=== PATIENT | female | born 1995 | race Caucasian/White ===

== ENCOUNTER 2017-11-26 13:35 | Inpatient (IN) | payer MEDICAID ==
[2017-11-26] MEDS: LACTATED RINGER'S 1,000 ML IV ×2 (14:30→16:20)
[2017-11-26] MEDS ORDERED: TERBUTALINE 1 ML (15:11)
[2017-11-26] MEDS: TERBUTALINE 1 MG/ML INJ SC (15:13)
[2017-11-26] MEDS ORDERED: SOD CHLORIDE 0.9% 1,000 ML IV (17:30)
[2017-11-26] MEDS ORDERED: MAGNESIUM SULFATE 20 GM/500 ML 500 ML IV (17:40)
[2017-11-26] MEDS ORDERED: MAGNESIUM SULFATE 4 GM/100 ML 100 ML (17:40)
[2017-11-26] MEDS: BETAMET NA PHOS/AC(6 MG/ML) 5ML INJ IM (17:44)
[2017-11-26] MEDS: MAGNESIUM SULFATE 4 GM/100 ML 100 ML IV (17:47)
[2017-11-26] MEDS: MAGNESIUM SULFATE 20 GM/500 ML 500 ML IV (18:16)
[2017-11-26] MEDS: CEFTRIAXONE 1 GM/50 ML (PMX) 50 ML IVPB (18:23)
[2017-11-26] MEDS: ACETAMINOPHEN 325 MG TAB PO (21:43)
[2017-11-27 01:51] LABS: MAGNESIUM 5.4 mg/dl (1.7-2.5)
[2017-11-27] MEDS: MAGNESIUM SULFATE 20 GM/500 ML 500 ML IV ×2 (04:30→14:48)
[2017-11-27] MEDS ORDERED: AL HYDROX/MG HYDROX/SIMETH 30 ML CUP PO (09:30)
[2017-11-27] MEDS: ONDANSETRON 4 MG INJ IV (11:05)
[2017-11-27 11:23] LABS: ADD UMIC NO; UR ASCORBIC ACID NEGATIVE (NEGATIVE); UR BILIRUBIN (Dip) NEGATIVE (NEGATIVE); UR BLOOD (Dip) NEGATIVE (NEGATIVE); UR CLARITY CLEAR (CLEAR); UR COLOR STRAW (YELLOW); UR GLUCOSE (Dip) NEGATIVE (NEGATIVE); UR KETONES (Dip) 2+ mg/dL (NEGATIVE); UR LEUKOCYTE ESTERASE (Dip) NEGATIVE Leu/ul (NEGATIVE); UR NITRITE (Dip) NEGATIVE (NEGATIVE); UR SPECIFIC GRAVITY (Dip) 1.009 (1.003-1.030); UR TOTAL PROTEIN (Dip) NEGATIVE (NEGATIVE); UR UROBILINOGEN (Dip) NEGATIVE (NEGATIVE)
[2017-11-27 13:58] LABS: MAGNESIUM 6.5 mg/dl (1.7-2.5)
[2017-11-27 14:50] LABS: ADD MAN DIFF? NO
[2017-11-27 14:51] LABS: BASOPHILS % 0.2 % (0.0-2.0); HEMATOCRIT 32.7 % (37.0-47.0); HEMOGLOBIN 11.4 g/dl (12.0-16.0); LYMPHOCYTES # 0.9 10^3/ul (0.8-2.9); LYMPHOCYTES % 7.6 % (15.0-51.0); MEAN CORPUSCULAR HEMOGLOBIN 31.7 pg (29.0-33.0); MEAN CORPUSCULAR HGB CONC 34.9 g/dl (32.0-37.0); MEAN CORPUSCULAR VOLUME 90.8 fl (82.0-101.0); MEAN PLATELET VOLUME 10.3 fl (7.4-10.4); MONOCYTE # 0.6 10^3/ul (0.3-0.9); NEUTROPHIL # 10.8 10^3/ul (1.6-7.5); NEUTROPHILS % 86.2 % (39.0-77.0); PLATELET COUNT 201 10^3/UL (140-415); RED CELL DISTRIBUTION WIDTH 12.9 % (11.5-14.5)
[2017-11-27 14:51] LABS: WHITE BLOOD COUNT 12.5 10^3/ul (4.8-10.8)
[2017-11-27 15:25] LABS: ALANINE AMINOTRANSFERASE 30 IU/L (13-69); ALBUMIN 3.5 g/dl (3.3-4.9); ALBUMIN/GLOBULIN RATIO 1.09; ALKALINE PHOSPHATASE 79 IU/L (42-121); ANION GAP 14 (8-16); ASPARTATE AMINO TRANSFERASE 23 IU/L (15-46); BILIRUBIN,INDIRECT 0.4 mg/dl (0-1.1); BILIRUBIN,TOTAL 0.4 mg/dl (0.2-1.3); BLOOD UREA NITROGEN 3 mg/dl (7-20); CALCIUM 6.7 mg/dl (8.4-10.2); CARBON DIOXIDE 20 mmol/L (21-31); CHLORIDE 101 mmol/L (97-110); CREATININE 0.53 mg/dl (0.44-1.00); GLUCOSE 116 mg/dl (70-220); POTASSIUM 3.5 mmol/L (3.5-5.1); SODIUM 131 mmol/L (135-144); TOTAL PROTEIN 6.7 g/dl (6.1-8.1)
[2017-11-27] MEDS: BETAMET NA PHOS/AC(6 MG/ML) 5ML INJ IM (17:46)
[2017-11-27] MEDS: LACTATED RINGER'S 1,000 ML IV (18:11)
[2017-11-27 18:27] LABS: MAGNESIUM 6.5 mg/dl (1.7-2.5)
[2017-11-28 01:21] LABS: MAGNESIUM 6.4 mg/dl (1.7-2.5)
[2017-11-28] MEDS: MAGNESIUM SULFATE 20 GM/500 ML 500 ML IV (01:39)
[2017-11-28] MEDS: LACTATED RINGER'S 1,000 ML IV (06:16)
[2017-11-28 07:08] LABS: MAGNESIUM 6.3 mg/dl (1.7-2.5)
[2017-11-28 12:16] LABS: MAGNESIUM 5.3 mg/dl (1.7-2.5)
== END 2017-11-28 15:30 | disposition home or self-care (01) | DRG 778 ==
LOC: OBT 13:35 → L-D 13:35 → OBT 17:50 → L-D 17:50
PROVIDERS: Obstetrics & Gynecology
DX: O60.03 Preterm labor without delivery, third trimester (principal); O23.43 Unspecified infection of urinary tract in pregnancy, third trimester; Z3A.33 33 weeks gestation of pregnancy
CPT/HCPCS: 76817; 76818; 80053; 81003; 83735; 85025; 85460; 86850; 86900; 86901; 87086

== ENCOUNTER 2017-12-15 21:15 | Inpatient (IN) | payer MEDICAID ==
[2017-12-15] MEDS: LACTATED RINGER'S 1,000 ML IV (21:55)
[2017-12-16] MEDS: TERBUTALINE 1 MG/ML INJ SC ×2 (00:10→08:51)
[2017-12-16 01:48] LABS: ADD UMIC NO; UR ASCORBIC ACID NEGATIVE (NEGATIVE); UR BACTERIA MODERATE /HPF (NONE SEEN); UR BILIRUBIN (Dip) NEGATIVE (NEGATIVE); UR BLOOD (Dip) NEGATIVE (NEGATIVE); UR CLARITY SLIGHTLY CLOUDY (CLEAR); UR COLOR YELLOW (YELLOW); UR GLUCOSE (Dip) NEGATIVE (NEGATIVE); UR KETONES (Dip) TRACE mg/dL (NEGATIVE); UR LEUKOCYTE ESTERASE (Dip) NEGATIVE Leu/ul (NEGATIVE); UR NITRITE (Dip) NEGATIVE (NEGATIVE); UR RBC 1 /HPF (0-5); UR SPECIFIC GRAVITY (Dip) 1.004 (1.003-1.030); UR SQUAMOUS EPITHELIAL CELL FEW /HPF (FEW); UR TOTAL PROTEIN (Dip) NEGATIVE (NEGATIVE); UR UROBILINOGEN (Dip) NEGATIVE (NEGATIVE); UR WBC 4 /HPF (0-5)
[2017-12-16] MEDS: LACTATED RINGER'S 1,000 ML IV ×2 (03:14→11:06)
[2017-12-16] MEDS ORDERED: TERBUTALINE 1 ML (08:44)
[2017-12-16 13:39] LABS: ADD MAN DIFF? NO
[2017-12-16 13:48] LABS: BASOPHILS % 0.4 % (0.0-2.0); EOSINOPHILS % 0.3 % (0.0-7.0); HEMATOCRIT 31.1 % (37.0-47.0); HEMOGLOBIN 11.1 g/dl (12.0-16.0); LYMPHOCYTES # 1.1 10^3/ul (0.8-2.9); LYMPHOCYTES % 15.2 % (15.0-51.0); MEAN CORPUSCULAR HEMOGLOBIN 31.4 pg (29.0-33.0); MEAN CORPUSCULAR HGB CONC 35.7 g/dl (32.0-37.0); MEAN CORPUSCULAR VOLUME 88.1 fl (82.0-101.0); MEAN PLATELET VOLUME 10.6 fl (7.4-10.4); MONOCYTE # 0.4 10^3/ul (0.3-0.9); MONOCYTES % 5.9 % (0.0-11.0); NEUTROPHIL # 5.5 10^3/ul (1.6-7.5); NEUTROPHILS % 77.4 % (39.0-77.0); PLATELET COUNT 168 10^3/UL (140-415); RED BLOOD COUNT 3.53 10^6/ul (4.20-5.40); RED CELL DISTRIBUTION WIDTH 13.2 % (11.5-14.5)
[2017-12-16 13:48] LABS: WHITE BLOOD COUNT 7.1 10^3/ul (4.8-10.8)
[2017-12-16 14:05] LABS: INR 0.94; PROTIME 12.7 Sec (11.9-14.9)
[2017-12-16 14:06] LABS: PARTIAL THROMBOPLASTIN TIME 25.5 Sec (25.0-35.0)
[2017-12-16 19:21] LABS: RAPID PLASMA REAGIN NONREACTIVE (NR)
[2017-12-16] MEDS ORDERED: LACTATED RINGER'S 500 ML IV (23:45)
== END 2017-12-16 18:30 | disposition home or self-care (01) | DRG 778 ==
LOC: OBT 21:15 → L-D 21:16
DX: O60.03 Preterm labor without delivery, third trimester (principal); Z3A.35 35 weeks gestation of pregnancy
CPT/HCPCS: 36415; 76817; 76818; 81001; 81003; 85025; 85610; 85730; 86592; 86850; 86900; 86901; 96360; 96361; 96372

== ENCOUNTER 2017-12-29 11:42 | Inpatient (IN) | payer MEDICAID ==
[~2017-12-29 11:42] MED LIST: EPHEDrine SULFATE 50 MG/5 ML SYG
[2017-12-29] MEDS ORDERED: METHYLERGONOVINE 0.2 MG INJ IM ×2 (12:30→14:30)
[2017-12-29] MEDS ORDERED: OXYTOCIN 30 UNITS/LR 500 ML IV ×3 (12:30→14:30)
[2017-12-29] MEDS ORDERED: CARBOPROST 250 MCG INJ IM ×2 (12:30→14:30)
[2017-12-29] MEDS ORDERED: MISOPROSTOL 200 MCG TAB PR ×2 (12:30→14:30)
[2017-12-29 12:53] LABS: ADD MAN DIFF? NO
[2017-12-29 12:55] LABS: WHITE BLOOD COUNT 8.2 10^3/ul (4.8-10.8)
[2017-12-29 12:55] LABS: BASOPHILS % 0.5 % (0.0-2.0); EOSINOPHILS % 0.5 % (0.0-7.0); HEMATOCRIT 35.4 % (37.0-47.0); HEMOGLOBIN 12.1 g/dl (12.0-16.0); LYMPHOCYTES # 1.3 10^3/ul (0.8-2.9); LYMPHOCYTES % 15.8 % (15.0-51.0); MEAN CORPUSCULAR HEMOGLOBIN 30.9 pg (29.0-33.0); MEAN CORPUSCULAR HGB CONC 34.2 g/dl (32.0-37.0); MEAN CORPUSCULAR VOLUME 90.5 fl (82.0-101.0); MEAN PLATELET VOLUME 10.6 fl (7.4-10.4); MONOCYTE # 0.5 10^3/ul (0.3-0.9); MONOCYTES % 6.1 % (0.0-11.0); NEUTROPHIL # 6.3 10^3/ul (1.6-7.5); NEUTROPHILS % 76.5 % (39.0-77.0); PLATELET COUNT 191 10^3/UL (140-415); RED BLOOD COUNT 3.91 10^6/ul (4.20-5.40); RED CELL DISTRIBUTION WIDTH 13.2 % (11.5-14.5)
[2017-12-29] MEDS: LACTATED RINGER'S 1,000 ML IV ×3 (12:55→13:36)
[2017-12-29] MEDS ORDERED: FAMOTIDINE 20 MG INJ (13:08)
[2017-12-29] MEDS ORDERED: CITRIC ACID/SODIUM CITRATE 15 ML CUP (13:08)
[2017-12-29] MEDS ORDERED: METOCLOPRAMIDE 10 MG INJ (13:09)
[2017-12-29 13:23] LABS: INR 0.88; PARTIAL THROMBOPLASTIN TIME 26.9 Sec (25.0-35.0); PT RATIO 0.9
[2017-12-29] MEDS: METOCLOPRAMIDE 10 MG INJ IV (13:33)
[2017-12-29] MEDS: FAMOTIDINE 20 MG INJ IV (13:33)
[2017-12-29] MEDS: CITRIC ACID/SODIUM CITRATE 15 ML CUP PO (13:33)
[2017-12-29] MEDS ORDERED: FENTAnyl 50 MCG/ML VIAL (13:36)
[2017-12-29] MEDS ORDERED: morphine SULFATE/PF (10 MG/10 ML) INJ (13:36)
[2017-12-29 13:43] LABS: HEPATITIS B SURFACE ANTIGEN NEGATIVE (NEGATIVE)
[2017-12-29] MEDS ORDERED: PHENYLephrine (100 MCG/ML) 5ML SYG (13:50)
[2017-12-29] MEDS ORDERED: MEPERIDINE 25 MG INJ IV (14:00)
[2017-12-29] MEDS ORDERED: ONDANSETRON 4 MG INJ IV ×2 (14:00→16:00)
[2017-12-29] MEDS ORDERED: HYDROmorphONE (0.2 MG/ML) 10ML SYG IV (14:00)
[2017-12-29] MEDS ORDERED: DIPHENHYDRAMINE 50 MG INJ IV ×2 (14:00→16:00)
[2017-12-29] MEDS ORDERED: PROCHLORPERAZINE 10 MG INJ IV (14:00)
[2017-12-29] MEDS: CEFAZOLIN 2 GM/50 ML (PMX) 50 ML IVPB (14:23)
[2017-12-29] MEDS ORDERED: CEFAZOLIN 2 GM/50 ML (PMX) 50 ML IV (14:30)
[2017-12-29] MEDS ORDERED: OXYCODONE/ACETAMINOPHEN (5/325) TAB PO (14:30)
[2017-12-29] MEDS: KETOROLAC 30 MG INJ IV ×2 (15:43→21:21)
[2017-12-29 15:53] LABS: RAPID PLASMA REAGIN NONREACTIVE (NR)
[2017-12-29] MEDS ORDERED: HYDROmorphONE 0.5 MG/0.5 ML SYG IV ×2 (16:00)
[2017-12-29] MEDS ORDERED: ZOLPIDEM 5 MG TAB PO (16:00)
[2017-12-29] MEDS ORDERED: NALOXONE (0.4 MG/ML) INJ IV (16:00)
[2017-12-29] MEDS: FENTAnyl 50 MCG/ML VIAL IV ×3 (16:38→17:55)
[2017-12-29] MEDS: OXYTOCIN 30 UNITS/LR 500 ML IV (18:37)
[2017-12-29] MEDS: SENNA/DOCUSATE NA (8.6MG/50MG) TAB PO (21:00)
[2017-12-29] MEDS ORDERED: CEFAZOLIN 2 GM/50 ML (PMX) 50 ML IVPB (21:00)
[2017-12-30] MEDS: KETOROLAC 30 MG INJ IV ×3 (03:07→14:04)
[2017-12-30] MEDS: LACTATED RINGER'S 1,000 ML IV (04:25)
[2017-12-30 07:41] LABS: ADD MAN DIFF? NO
[2017-12-30 07:48] LABS: BASOPHIL # 0.1 10^3/ul (0.0-0.1); BASOPHILS % 0.5 % (0.0-2.0); EOSINOPHILS % 0.3 % (0.0-7.0); HEMATOCRIT 33.3 % (37.0-47.0); HEMOGLOBIN 11.5 g/dl (12.0-16.0); LYMPHOCYTES # 0.7 10^3/ul (0.8-2.9); LYMPHOCYTES % 6.4 % (15.0-51.0); MEAN CORPUSCULAR HEMOGLOBIN 31.1 pg (29.0-33.0); MEAN CORPUSCULAR HGB CONC 34.5 g/dl (32.0-37.0); MEAN PLATELET VOLUME 10.7 fl (7.4-10.4); MONOCYTE # 0.7 10^3/ul (0.3-0.9); NEUTROPHIL # 9.9 10^3/ul (1.6-7.5); NEUTROPHILS % 86.2 % (39.0-77.0); PLATELET COUNT 170 10^3/UL (140-415); RED CELL DISTRIBUTION WIDTH 13.2 % (11.5-14.5)
[2017-12-30 07:48] LABS: WHITE BLOOD COUNT 11.5 10^3/ul (4.8-10.8)
[2017-12-30] MEDS: SENNA/DOCUSATE NA (8.6MG/50MG) TAB PO ×2 (09:31→21:44)
[2017-12-30] MEDS: IBUPROFEN 600 MG TAB PO ×2 (18:00→23:46)
[2017-12-30] MEDS: OXYCODONE/ACETAMINOPHEN (5/325) TAB PO (19:13)
[2017-12-31] MEDS: OXYCODONE/ACETAMINOPHEN (5/325) TAB PO ×3 (03:20→12:47)
[2017-12-31] MEDS: IBUPROFEN 600 MG TAB PO ×2 (05:44→14:12)
[2017-12-31] MEDS: SENNA/DOCUSATE NA (8.6MG/50MG) TAB PO (09:09)
== END 2017-12-31 15:15 | disposition home or self-care (01) | DRG 766 ==
LOC: OBT 11:42 → L-D 11:43 → OBT 12:23 → L-D 12:34 → PP1 18:14
PROVIDERS: Obstetrics & Gynecology
PROC: 10D00Z1 Extraction of Products of Conception, Low, Open Approach (ICD-10-PCS; principal; 2017-12-29 13:30)
PROC: 0UL70ZZ Occlusion of Bilateral Fallopian Tubes, Open Approach (ICD-10-PCS; 2017-12-29 13:30)
PROC: 3E033VJ Introduction of Other Hormone into Peripheral Vein, Percutaneous Approach (ICD-10-PCS; 2017-12-29 13:30)
DX: O34.211 Maternal care for low transverse scar from previous cesarean delivery (principal); Z30.2 Encounter for sterilization; Z37.0 Single live birth; Z3A.37 37 weeks gestation of pregnancy
CPT/HCPCS: 85025; 85610; 85730; 86592; 86850; 86900; 86901; 87340; 88302; 94760; 99464

== ENCOUNTER 2019-07-02 09:26 | Emergency (ER) | payer MEDICAID, OTHER ==
[2019-07-02] MEDS: ACETAMINOPHEN 500 MG TAB PO (09:46)
== END 2019-07-02 10:21 | disposition home or self-care (01) ==
LOC: FTE 10:21
DX: S69.91XA Unspecified injury of right wrist, hand and finger(s), initial encounter (principal); W01.0XXA Fall on same level from slipping, tripping and stumbling without subsequent striking against object, initial encounter; Y92.9 Unspecified place or not applicable
CPT/HCPCS: 29130; 73140; 99283-25